=== PATIENT | female | born 2000 | race Caucasian/White ===

== ENCOUNTER 2020-05-15 01:42 | Emergency (ER) | payer BC ==
[2020-05-15] MEDS ORDERED: methylPREDNISolone Sodium Succinate 125 MG/2 ML SDV IVPUSH ONE (02:03)
[2020-05-15] MEDS ORDERED: Famotidine 20 MG/2 ML SDV IVPUSH ONE (02:03)
[2020-05-15] MEDS ORDERED: Ondansetron 4 MG/2 ML SDV IVPUSH ONE (02:04)
[2020-05-15] MEDS ORDERED: diphenhydrAMINE 50 MG/ML SDV IVPUSH ONE (02:04)
[2020-05-15] MEDS ORDERED: Sodium Chloride 0.9% 1,000 ML IV SCH (02:15)
--- NOTE | 2020-05-15 03:39 | EDM.PDOC ---
ED HPI GENERAL MEDICAL PROBLEM - General Chief Complaint: Gastrointestinal Problem Stated Complaint: POSSIBLE ALLERGIC REACTION TO MEDS Time Seen by Provider: 05/15/20 01:53 - History of Present Illness INITIAL COMMENTS - FREE TEXT/NARRATIVE: CHIEF COMPLAINT(S): Nausea and vomiting HISTORY OF PRESENT ILLNESS: This is a 19-year-old woman with a past medical history of depression and anxiety who comes to the emergency department with a chief complaint of nausea and vomiting. The patient states that approximately 930 she started her new medication Zoloft. She states that approximately an hour after that she started to experience nausea and vomiting which is intractable. She states that she was unable to tolerate any p.o. She states that she denies any rash but states that she did feel mildly short of breath. She denies any abdominal pain. She denies any wheezing or history of asthma. She states that this all started after Zoloft. She denies any dysuria, hematuria, vaginal bleeding, vaginal discharge. She denies any fevers or chills. REVIEW OF SYSTEMS: Constitutional: Denies fever, chills. Eyes: Denies eye pain Ears, Nose, Mouth, & Throat: Denies earache Cardiovascular: Denies chest pain Respiratory: Denies shortness of breath Gastrointestinal: Positive for nausea and vomiting. Denies diarrhea, hematochezia Genitourinary: Denies hematuria Skin:Denies a rash Neurological: Denies blurred vision or numbness, tingling, weakness Psychiatric: Denies depression PAST MEDICAL HISTORY: As per history of present illness and as reviewed below otherwise noncontributory. SURGICAL HISTORY: As per history of present illness and as reviewed below otherwise noncontributory. SOCIAL HISTORY: As per history of present illness and as reviewed below otherwise noncontributory. FAMILY HISTORY: As per history of present illness and as reviewed below otherwise noncontributory. EXAMINATION OF ORGAN SYSTEMS/BODY AREAS: Constitutional: Blood pressure is 127/88, heart rate 93, respiratory rate 20 with an oxygen saturation 99% on room air. Temperature 35.9 General: Overall well-appearing woman who is in no acute distress. Psychiatric: Appropriate mood and affect. Eyes: No scleral icterus or conjunctival erythema ENMT: Moist mucous membranes. No pharyngeal erythema Cardiovascular: Regular, rate, and rhythm. No gallops, murmurs, or rubs. Bilateral upper extremity pulses symmetric and intact. No peripheral edema. No JVD. Respiratory: Lungs clear to auscultation bilaterally. No wheezes, rales, or rhonchi. Gastrointestinal: Soft, non-tender, non-distended. Normoactive bowel sounds no rebound or guarding. Genitourinary: No suprapubic tenderness Musculoskeletal: Normal range of motion. Skin: No lesions or abrasions. Neurological: Alert, GCS 15 MEDICAL DECISION MAKING AND COURSE IN THE ED WITH INTERPRETATION/REVIEW OF DIAGNOSTIC STUDIES: This is a 19-year-old woman with a past medical history of depression anxiety who comes to the emergency department with nausea and vomiting after administration of Zoloft. At this time I do believe this is likely secondary to a allergic reaction secondary to her medication. At this time we will treat her with IV Solu-Medrol, IV famotidine, IV Benadryl, and IV Zofran. We will reevaluate the patient for improvement. After period of observation the patient no longer had any nausea or vomiting was able to tolerate p.o. I discussed with her that she should not use the left again. I discussed that she should follow-up with her psychiatrist regarding depression and anxiety management given her allergy to Zoloft. She was amenable to discharge at this time and had no further questions. She is to return for any new or worsening symptoms. DISPOSITION: The patient was discharged home in stable condition. The patient will follow up with her psychiatrist within 2 to 3 days CONDITION: Fair PROCEDURES: None FINAL IMPRESSION(S)/DIAGNOSES: 1. Acute nausea and vomiting likely allergic reaction secondary to Zoloft Román Em M.D. - Related Data Allergies Allergy/AdvReac Type Severity Reaction Status Date / Time No Known Allergies Allergy Verified 05/15/20 01:53 Home Meds: Home Meds Sertraline [Zoloft] 50 mg PO BEDTIME 05/15/20 [History] Past Medical History - Past Health History Medical/Surgical History: Denies Medical/Surgical History Other [employer] History: pt states she is on control for "heavy periods" Psychiatric History: Reports: Anxiety, Depression Other Dermatologic History: MRSA infection inface. - Infectious Disease History Infectious Disease History: Reports: MRSA Social & Family History - Family History Family Medical History: No Pertinent Family History - Tobacco Use Tobacco Use Status *Q: Never Tobacco User - Caffeine Use Caffeine Use: Reports: None Caffeine Use Comment: 1/day - Recreational Drug Use Recreational Drug Use: No ED ROS GENERAL - Review of Systems Review Of Systems: See Below ED EXAM, GENERAL - Physical Exam Exam: See Below Course - Vital Signs Last Recorded V/S: Last Vital Signs Temp 36.3 C 05/15/20 03:57 Pulse 69 05/15/20 03:57 Resp 16 05/15/20 03:57 BP 115/66 05/15/20 03:57 Pulse Ox 98 05/15/20 03:57 - Orders/Labs/Meds Meds: Medications Discontinued Medications Generic Name Dose Route Start Last Admin Trade Name Freq PRN Reason Stop Dose Admin Diphenhydramine HCl 50 mg 05/15/20 02:04 05/15/20 02:10 Benadryl IVPUSH 05/15/20 02:05 50 mg ONETIME ONE Administration Famotidine 20 mg 05/15/20 02:03 05/15/20 02:12 Pepcid IVPUSH 05/15/20 02:04 20 mg ONETIME ONE Administration Sodium Chloride 1,000 mls @ 999 mls/hr 05/15/20 02:15 05/15/20 02:09 Normal Saline IV 999 mls/hr ASDIRECTED JAKE Administration Methylprednisolone Sodium Succinate 125 mg 05/15/20 02:03 05/15/20 02:10 Solu-Medrol IVPUSH 05/15/20 02:04 125 mg ONETIME ONE Administration Ondansetron HCl 4 mg 05/15/20 02:04 05/15/20 02:12 Zofran IVPUSH 05/15/20 02:05 4 mg ONETIME ONE Administration Departure - Departure Time of Disposition: 03:37 Disposition: Home, Self-Care 01 Condition: Fair Clinical Impression: Allergic reaction caused by a drug Qualifiers: Encounter type: initial encounter Qualified Code(s): T78.40XA - Allergy, unspecified, initial encounter - Discharge Information *PRESCRIPTION DRUG MONITORING PROGRAM REVIEWED*: No *COPY OF PRESCRIPTION DRUG MONITORING REPORT IN PATIENT ADITYA: No Instructions: Allergies, Adult, [id number], Nausea and Vomiting, Adult, [id number] Referrals: Asha Stone DO [Primary Care Provider] - Forms: ED Department Discharge Additional Instructions: You were evaluated today on an emergent basis. I do believe you have an allergic reaction to Zoloft. Please do not take this medication any further. I recommend following up with Dr. Martin for reevaluation of the medication. If you have any new or worsening symptoms please return to the emergency department. [facility] [address] [place] [id number] [id number] The patient is informed of any results of their evaluation and diagnostic workup and all questions are answered. They are given discharge instructions and return precautions. The patient is stable for discharge. The patient states they understand and agree with the plan and that they will return if their symptoms get worse or if they have any new concerns. The following information is given to patients seen in the emergency department who are being discharged to home. This information is to outline your options for follow-up care. We provide all patients seen in our emergency department with a follow-up referral. The need for follow-up, as well as the timing and circumstances, are variable depending upon the specifics of your emergency department visit. If you don't have a primary care physician on staff, we will provide you with a referral. We always advise you to contact your personal physician following an emergency department visit to inform them of the circumstance of the visit and for follow-up with them and/or the need for any referrals to a consulting specialist. The emergency department will also refer you to a specialist when appropriate. This referral assures that you have the opportunity for follow-up care with a specialist. All of these measure are taken in an effort to provide you with optimal care, which includes your follow-up. Under all circumstances we always encourage you to contact your private physician who remains a resource for coordinating your care. When calling for follow-up care, please make the office aware that this follow-up is from your recent emergency room visit. If for any reason you are refused follow-up, please contact the [facility] Emergency Department at and asked to speak to the emergency department charge nurse. Sepsis Event Note (ED) - Evaluation Sepsis Screening Result: No Definite Risk - Focused Exam Vital Signs: Vital Signs Temp Pulse Resp BP Pulse Ox 05/15/20 03:57 36.3 C 69 16 115/66 98 05/15/20 02:59 65 16 107/75 98 05/15/20 01:44 35.9 C L 93 20 127/88 99
[2020-05-15 04:02] VITALS: BP 115/66; PULSE 69
== END 2020-05-15 03:57 | disposition home or self-care (01) ==
LOC: MW.ED 01:42
DX: R11.2 Nausea with vomiting, unspecified (principal); T43.225A Adverse effect of selective serotonin reuptake inhibitors, initial encounter; F41.9 Anxiety disorder, unspecified; F32.9 Major depressive disorder, single episode, unspecified; Z79.899 Other long term (current) drug therapy
CPT/HCPCS: 96361; 96374; 96375; 99283; J1200; J2405; J2930; J3490; J7030